=== PATIENT | female | born 1940 | race Caucasian/White ===

== ENCOUNTER 2017-07-13 14:39 | Emergency (ER) | payer MEDICARE, OTHER ==
[2014-06-16 16:37] VITALS: BMI 25.1
[~2017-07-13 14:39] MED LIST: ANASTROZOLE1 MG PO; ASPIRIN81 MG PO; CALTRATE 600 M600 M1 PO; CIPRO500 MG PO; CORDARONE200 MG PO; LEVOTHROID88 MCG PO; LIPITOR20 MG PO; LISINOPRIL5 MG PO
== END 2017-07-13 16:47 | disposition home or self-care (01) ==
LOC: D.ER 14:39
DX: R51 Headache (principal); I10 Essential (primary) hypertension; Z85.3 Personal history of malignant neoplasm of breast

== ENCOUNTER → 2017-10-15 10:40 | Outpatient (CLI) | payer MEDICARE, OTHER ==
[2014-06-16 16:37] VITALS: BMI 25.1
== END | disposition home or self-care (01) ==
LOC: D.US 10:40
DX: I12.9 Hypertensive chronic kidney disease with stage 1 through stage 4 chronic kidney disease, or unspecified chronic kidney disease (principal); N18.3 Chronic kidney disease, stage 3 (moderate)

== ENCOUNTER → 2017-10-25 09:44 | Outpatient (CLI) | payer MEDICARE, OTHER ==
[2014-06-16 16:37] VITALS: BMI 25.1
== END | disposition home or self-care (01) ==
LOC: D.MRI 09:44
DX: N28.89 Other specified disorders of kidney and ureter (principal); R93.5 Abnormal findings on diagnostic imaging of other abdominal regions, including retroperitoneum

== ENCOUNTER → 2019-10-21 09:09 | Outpatient (CLI) | payer MEDICARE, OTHER ==
[2014-06-16 16:37] VITALS: BMI 25.1
--- NOTE | 2019-10-22 12:54 | EC ---
PATIENT:HANY GOYAL DATE OF SERVICE: 10/21/19 SEX: F MEDICAL RECORD: [id number] DATE OF : 40 LOCATION:[facility] AGE OF PATIENT: 79 ADMISSION DATE: 10/21/19 REFERRING PHYSICIAN: INTERPRETING PHYSICIAN: MISSY TREVIZO MD ECHOCARDIOGRAM REPORT ECHO CHARGES 4 ECHO COMPLETE Date: 10/21/19 CLINICAL DIAGNOSIS: MITRAL/TRICUSPID REGURG ECHOCARDIOGRAPHIC MEASUREMENTS (adult normal given) AC root (d.<3.7cm) 3.1 cm LV Septum d (<1.2 cm> 1.2 cm Valve Excursion 1.4 cm LV Septum (systole) 1.3 cm Left Atria (s.<4.0cm> 3.9 cm LVPW d(<1.2cm) 1.1 cm RV (d.<2.3cm) 3.5 cm LVPW (sytole) 1.6 cm LV diastole(<5.6CM) 5.2 cm MV E-F(>70mm/sec) cm LV systole 3.1 cm LVOT Diameter 2.1 cm MV exc.(>10mm) 1.2 cm Est.ejection fraction (50-75%) % DOPPLER: LVIT cm/sec A 155.0cm/sec E 134.0 cm/sec LA cm/sec RVSP 29 mmHg LVOT 122 cm/sec AOP1/2T m/s Asc. Ao 149 cm/sec RVOT 79 cm/sec RA cm/sec PA 109 cm/sec AV Gradient Peak 8.91 mmHg AV Mean 4.72 mmHg AV Area 3.3 cm MV Gradient Peak 8.20 mmHg MV Mean 2.41 mmHg MV Area cm COMMENTS: Learning Facilitator: Benson DEVINE Employment Service Specialist: 1 Dr. Trevizo TAPE# PACS Pericardial Effusion N DATE OF SERVICE: 10/21/2019 FINDINGS: 1. Left ventricular chamber size is within normal limits. Left ventricular systolic function is normal. Overall ejection fraction estimated at 60% to 65%. 2. Left atrium, right atrium, and right ventricle chamber sizes are within normal limits. 3. Valvular structures have normal structure and motion. 4. Doppler interrogation reveals mild mitral regurgitation, mild tricuspid regurgitation, no other valvular insufficiency or stenosis. Pulmonary systolic ECHOCARDIOGRAM REPORT [id number] HANY GOYAL pressure estimated at 29 mmHg. 5. No evidence of pericardial effusion or left ventricular thrombus. TRANSINT:[id number] Voice Confirmation ID: [id number] DOCUMENT ID: [id number] MISSY TREVIZO MD at 1254 CC: [id number] DICTATION DATE: 10/21/19 1509 LAST PULLER: 10/21/19 [id number] DEP CLI 10/21/19 [place] [id number]
== END | disposition home or self-care (01) ==
LOC: D.HCCECHO 10-14 09:00
PROVIDERS: ATTEND Internal Medicine Interventional Cardiology
DX: I34.0 Nonrheumatic mitral (valve) insufficiency (principal)